=== PATIENT | male | born 1975 | race African-American/Black ===

== ENCOUNTER 2017-07-11 13:37 | Inpatient (IN) ==
[2017-07-11] MEDS ORDERED: ONDANSETRON 4 MG/2 ML VIAL ONE ×2 (13:54→21:51)
[2017-07-11] MEDS ORDERED: MORPHINE 2 MG/1 ML SYRINGE ONE (13:54)
--- NOTE | 2017-07-11 14:31 | XRay Report ---
Exam: XR hand 3V LT Date: 07/11/2017 2:00 PM Indication: Trauma laceration Comparison: None Technical: AP lateral oblique Findings: Examination reveals fracture of the distal phalanx of the second digit with soft tissue laceration and transverse fracture. The middle and proximal phalanx are intact. The exam reveals soft tissue laceration of the third digit with soft tissue laceration of the fourth digit. The proximal middle and distal phalanx are intact. The first digit and fifth digit are intact the metacarpals and phalanges are unremarkable. The radius and ulna are intact. Impression: 1. Extensive soft tissue injury of the hand involving the digits involving the third and fourth digits with near amputation of the distal phalanx of the second digit with lateral examination reveals avulsion and transverse fracture fragment present inferiorly posteriorly positioned with resultant open fracture wound present. No obvious foreign body debris present PROCEDURE INTERPRETED AT [facility] DEPARTMENT OF RADIOLOGY Final Report Signed by: Dr. Usman Estrada
[2017-07-11] MEDS ORDERED: MORPHINE 2 MG/1 ML SYRINGE IV STA (14:48)
[2017-07-11] MEDS ORDERED: ONDANSETRON 4 MG/2 ML VIAL IV STA (14:49)
--- NOTE | 2017-07-11 14:56 | Emergency Department Note ---
Arrival - Arrival Chief Complaint: Wound/Laceration Stated Complaint: cut hand/finger ED Nursing Triage Note: Laceration to 2nd, 3rd, and 4th digits. Cut with a skil saw. Mode of Arrival: Ambulatory Limitations: No Limitations Source: Patient Time Seen by Provider: 07/11/17 14:22 - History of Present Illness HPI Narrative: Patient complains of lacerations to the left hand. He cut his index, middle and fourth finger with a circular saw just prior to arrival. He denies any other injury. He last ate around 11:00 today. Last tetanus immunization was 4 years ago. Allergies/Adverse Reactions: Allergies Allergy/AdvReac Type Severity Reaction Status Date / Time No Known Allergies Allergy Verified 07/11/17 13:55 Review of System - Review of System 12 point system: reviewed and no additional remarkable complaints except as stated Medical,Surgical,& Family Hx - Medical History Medical History: noncontributory - Surgical History Surgical History: noncontributory - Family History Family History: noncontributory - Social History Smoking Status: Current every day smoker Frequency of Alcohol Use: None Type of Drug Use: None Exam Physical Examination: Gen: Alert. No acute distress HEENT: Normocephalic and atraumatic. EOMI. No nasal drainage. Neck: Full ROM without evidence of pain. Resp: No acute distress. Ext: There are large lacerations of the distal index, third and fourth fingers of the left hand. Bleeding is controlled. All of the lacerations are over or near the DIP joints. He cannot flex the DIP joint of the index finger so the tendon appears to be lacerated. The middle finger has the most severe laceration and it is nearly amputated. He cannot flex the DIP joint of that finger either. The fourth finger has a full range of motion and good flexion throughout. All fingers have sensation to the tips and good capillary refill. Skin: Normal color. Warm and dry. Neuro: Alert and oriented x 3. No gross cranial, sensory or motor deficits. Vital Signs: Vital Signs Temperature 98.3 F 07/11/17 13:46 Pulse Rate 82 07/11/17 13:46 Respiratory Rate 22 07/11/17 13:46 Blood Pressure 160/117 07/11/17 13:46 O2 Sat by Pulse Oximetry 100 07/11/17 13:46 Course - Reevaluation(s) Reevaluation #1: The patient has lacerated the flexor tendons of the index and middle finger and also has an open fracture of the distal phalanx of the index finger. He is going to need surgery for repair. I discussed patient with Dr. Rick. He asked that we call anesthesia and clear the patient because he ate at 11:00 tonight. Time: 14:54 Reevaluation #2: Anesthesia was contacted and they say they can do surgery around 5:00. Dr. Rick was notified and will come to see the patient in the emergency room. Time: 15:01 Results - Impressions X-ray of the left hand shows large soft tissue lacerations of the index, third and fourth fingers. There is a an open fracture of the distal phalanx of the index finger. Disposition Clinical Impression: Laceration, Open fracture of distal phalanx of digit of left hand, Flexor tendon laceration of finger with open wound Case discussed with: patient Disposition: Still a Patient Condition: Stable Time of Disposition: 15:03
[2017-07-11] MEDS ORDERED: HYDROmorphone 2 MG/1 ML VIAL ONE (15:01)
[2017-07-11] MEDS ORDERED: HYDROmorphone 2 MG/1 ML VIAL IV STA (15:03)
--- NOTE | 2017-07-11 15:29 | XRay Report ---
Single view the chest. Indication: Respiratory preoperative. The heart is normal in size. The pulmonary vasculature is normal. There is mild atelectasis or scarring at the lateral aspect of the left lung base. No consolidation, pneumothorax, or pleural effusion. Impression: Mild atelectasis or scarring at the left lung base. PROCEDURE INTERPRETED AT [facility] DEPARTMENT OF RADIOLOGY Final Report Signed by: Dr. Kim Ryan
[2017-07-11 15:31] LABS: Basophils # 0.1 10*3/uL (0.0-0.2); Basophils % 0.9 % (0.0-0.8); Eosinophils # 0.1 10*3/uL (0.0-0.87); Eosinophils % 1.6 % (0.00-10.9); Hemoglobin 16.3 GM/DL (14.0-18.0); Immature Granulocytes % 0.5 %; Immature Granulocytes Absolute 0.04 #; Lymphocytes % 37.1 % (21.2-54.2); Mean Corpuscular HGB Conc 34.7 GM/DL (32-36); Mean Corpuscular Hemoglobin 32 PG (27-34); Mean Corpuscular Volume 90.9 FL (87-102); Mean Platelet Volume 9.6 FL (9.6-12.0); Monocytes # 0.7 10*3/uL (0.11-0.8); Monocytes % 9.1 % (1.7-12.7); Neutrophils # 4.1 10*3/uL (1.4-7.4); Neutrophils % 50.8 % (38.7-73.9); Platelet Count 363 T/CUMM (130-400); Red Blood Count 5.17 MC/CUMM (3.8-5.5); Red Cell Distribution Width 13.2 % (9.3-17.3)
[2017-07-11 15:33] LABS: Calcium 9.8 MG/DL (8.5-10.1); Osmolality,Calculated 280.3 MOS/KG (273-304)
--- NOTE | 2017-07-11 15:44 | Orthopedic Consult Note ---
History of Present Illness Chief complaint: left hand pain History of present illness: Mr. Vela is a 41 year old male Sustained an injury to his left hand second third and fourth digit from a circular saw earlier today. He is seen and evaluated the ER. X-rays were taken which showed a left index finger distal phalanx fracture. ER evaluation revealed flexor tendon lacerations to the second third and fourth digit. Patient denied any other injuries. Denies any other pain or complaints. He would like to go home today after the procedure to repair his left hand Home Medications Medication Instructions Recorded Confirmed Type Oxycodone HCl/Acetaminophen 1 each PO Q6HR #30 tablet 07/11/17 Rx [Percocet 7.5-325 mg Tablet] Allergies Allergy/AdvReac Type Severity Reaction Status Date / Time No Known Allergies Allergy Verified 07/11/17 13:55 12 point system: reviewed and no additional remarkable complaints except as stated Medical,Surgical,& Family Hx - Medical History Medical History: noncontributory - Surgical History Surgical History: noncontributory - Family History Family History: noncontributory (1/2 ppd) - Social History Smoking Status: Current every day smoker Frequency of Alcohol Use: None Type of Drug Use: None Exam - Constitutional Vitals: Period Temp Pulse Resp BP Sys/Phan Pulse Ox Last 24 Hr 98.3 F 82 22 160/117 100 General appearance: normal weight, no acute distress - Head Head exam: Present: normal inspection, normocephalic, atraumatic - Eye Eye exam: Present: EOMI Pupils: Present: KASANDRA - ENT ENT exam: Present: normal exam - Neck Neck exam: Present: normal inspection. Absent: tenderness - Respiratory Respiratory exam: Absent: accessory muscle use, wheezes - Cardiovascular Cardiovascular exam: Present: regular rate and rhythm - GI/Abdominal GI/Abdominal exam: Absent: distended, firm - Expanded Left Upper Extremity General: Absent: normal inspection (Unable to flex second third or fourth digit. Capillary refill is still brisk. Sensation is blunted the volar aspect of his second third and fourth finger.) Hand wrist exam: Present: laceration (Deep laceration of second third and fourth fingers of the volar aspect) - Neurological Exam Neurological exam: Present: alert, oriented X3, CN II-XII intact - Psychiatric Psychiatric exam: Present: normal affect, normal mood - Skin Skin exam: Present: other (Deep laceration to left second third and fourth digit as above) Results - Labs CBC & BMP: 07/11/17 14:02 07/11/17 14:02 Lab Results: I have reviewed the past 24 hour labs - Diagnostic Findings Procedure: Ultrasound: image reviewed by me, report reviewed by me Assessment and Plan (1) Flexor tendon laceration of finger with open wound Status: Acute Assessment and plan: Discussed with Mr. Vela his injury and that he has a high risk for complications including but not limited to infection, stiffness, decreased range of motion, persistent pain, and other potential complications I explained that I recommend surgical debridement in the operative room to debride and clean the wounds, to repair the flexor tendons if possible, and any other indicated procedures. Discussed that I will be able to better address the injuries in surgery and that I will do everything I can to repair the wounds. I explained that he is at increased risk due to his smoking for infection, complications, pain, stiffness, nonhealing of the wounds. He gave full understanding to this. All questions were answered to his satisfaction. He agreed to undergo the surgical procedure. He would like to go home today because he has 2 children at home that he needs to take care of I explained to him that depend on how complicated and dirty or contaminated the wound is, he may need to stay overnight for IV antibiotics, but that if a is fairly clean he may be able to go home on oral antibiotics. Pain medication prescribed by the ER physician. Plan for surgical debridement today Current Visit: Yes (2) Laceration Status: Acute Current Visit: Yes (3) Open fracture of distal phalanx of digit of left hand Status: Acute Current Visit: Yes
--- NOTE | 2017-07-11 15:46 | EKG Report ---
Stationary ECG Study [facility] ER Test Date: 07/11/2017 3:44:51 PM Pat Name: DOMI BACA Department: Room: Gender: M Assistant Store Manager Trainee: : 1975 Requested by: Usman Mancia Order Number: [id number] Reading MD: AR CARREON Intervals [place] Rate: 64 P: 72 KS: 164 QRS: 78 QRSD: 102 T: 71 QT: 386 QTc: 396 Interpretive Statements SINUS RHYTHM Electronically Signed On 07-12-17 18:45:47 CDT by AR CARREON [email or web address]
--- NOTE | 2017-07-11 20:39 | XRay Report ---
Intraoperative fluoroscopy. 45 seconds. Intraoperative fluoroscopy was provided for the primary service during pin placement in a left second distal phalanx fracture. 3 images were obtained which are presumed to serve the clinical purpose. PROCEDURE INTERPRETED AT [facility] DEPARTMENT OF RADIOLOGY Final Report Signed by: Dr. Kim Ryan
--- NOTE | 2017-07-11 21:39 | Anesthesia Post-Op ---
Anesthesia Post OP - Post Ansesthetic Evaluation Patient seen in post op: Yes Resp: within normal limits CV: within normal limits Mental: within normal limits Temp: within normal limits [id number]: within normal limits Nausea and Vomiting: within normal limits Pain: within normal limits
[2017-07-11] MEDS ORDERED: PROPOFOL 200 MG/20 ML VIAL IV ONE (21:50)
[2017-07-11] MEDS ORDERED: ROCURONIUM 100 MG/10 ML VIAL IV ONE (21:51)
[2017-07-11] MEDS ORDERED: GLYCOPYRROLATE 0.4 MG/2 ML VIAL ONE (21:51)
[2017-07-11] MEDS ORDERED: fentaNYL 100 MCG/2 ML VIAL ONE (21:51)
[2017-07-11] MEDS ORDERED: SEVOFLURANE 1 UNIT/15 MINUTE INH ONE (21:51)
[2017-07-11] MEDS ORDERED: MIDAZOLAM 2 MG/2 ML VIAL ONE (21:51)
[2017-07-11] MEDS ORDERED: NEOSTIGMINE 10 MG/10 ML VIAL ONE (21:51)
[2017-07-11] MEDS ORDERED: LACTATED RINGERS 2,000 ML IV ONE (21:52)
[2017-07-11] MEDS ORDERED: LABETALOL 20 MG/4 ML SYRINGE IV ONE (22:00)
[2017-07-11] MEDS ORDERED: hydrALAZINE 20 MG/1 ML VIAL IV ONE (22:00)
[2017-07-11] MEDS ORDERED: oxyCODONE/ACETAMINOPHEN 5-325 MG TABLET PO PRN (22:17)
[2017-07-11] MEDS ORDERED: ONDANSETRON 4 MG/2 ML VIAL IV PRN (22:17)
[2017-07-11] MEDS ORDERED: MORPHINE 2 MG/1 ML SYRINGE IV PRN (22:17)
--- NOTE | 2017-07-11 22:27 | Operative Note ---
Date of procedure: 07/11/17 Pre-op diagnosis: Traumatic saw injury to left hand second third and fourth digits Post-op diagnosis: other (Significant injury to the left hand second third and fourth digits. Open fracture of the index finger distal phalanx, middle finger distal phalanx and proximal phalanx, and ring finger middle phalanx. Complete laceration of the deep flexor tendons of the index middle and ring fingers, with retraction of the deep flexor tendon of the middle finger to the metacarpal. Complete laceration of the left middle finger ulnar digital artery and nerve which were not repairable) Procedure: Procedures performed #1 irrigation and debridement down to bone of open fracture left index finger distal phalanx #2 irrigation and debridement down to bone of open fracture left middle finger distal phalanx and middle phalanx #3 irrigation and debridement down to bone of open fracture of left ring finger middle phalanx #4 Primary repair of left index finger deep flexor tendon #5 complex primary repair left middle finger deep flexor tendon -this portion of the surgery was significantly complicated due to the need for surgical exploration to locate the tendon and passed the tendon back through the finger pulleys and took a substantially more time than a standard flexor tendon repair #6 primary repair of left ring finger deep flexor tendon #7 A1 zachary release of left middle finger #8 open reduction and internal fixation of left index finger distal phalanx comminuted fracture with a K wire #9 layered closure of complex irregular wound left index finger 3 cm in length #10 layered closure of complex irregular wound left middle finger 8 cm in length #11 layered closure complex irregular wound left ring finger 6 cm in length #12 interpretation of fluoroscopy by surgeon Operative findings: Mr. Vela sustained a circular saw injury to his left hand of the index middle and ring finger. There is extensive damage to all 3 fingers. DexPak finger had a transverse approximate 3 cm wound that went into the distal phalanx creating a comminuted distal phalanx fracture in September the deep flexor tendon at the proximal aspect of the distal phalanx. The middle finger had a approximately 3 cm transverse wound at the DIP joint with a 2 cm wound extending along the middle portion of the distal phalanx and then a 3-4 cm irregular wound longitudinally along the ulnar aspect of the middle phalanx. Middle finger wound extended into the distal aspect of the middle phalanx. There is complete rupture/laceration to the deep flexor tendon. Surgical exploration the stump of the tendon was found within the A1 zachary. The proper ulnar digital nerve was completely severed and mangled nature, the ulnar digital artery was not explored because there is no pulsatile bleeding in this area and the finger tip had good capillary refill. The ring finger had a irregular wound that was approximately 2 cm transverse and 4 cm longitudinal. The skin all 3 sites in particular the middle and ring finger were mangled and some portions of the skin had to be excised Description of procedure: Patient was seen and identified in the preoperative holding area. Consent was verified and signed. Patient then brought to the operative suite by the anesthesia team. After adequate anesthesia was obtained a tourniquet was placed on the left upper brachium the left arm was prepped and draped in the usual sterile fashion after scrubbing the wound hand and arm with Betadine scrub brushes. Timeout was taken indicating correct patient, site, surgery and that antibiotics have been given. Tourniquet was inflated to 250 mmHg. At the start of the procedure a total of 6 L of normal saline were utilized to irrigate the wound sites and with exploration of the wounds all 3 wounds had a fracture component. The index finger had a open, comminuted distal phalanx fracture, the middle finger had saw cuts and small chip fractures to the middle phalanx, the ring finger had saw markings and small chip fractures as well. A small chip fractures there are void of tissue were excised of the index middle and ring finger. There is no debris noted within the wound after thorough irrigation and debridement. I then performed a primary repair of the index finger deep flexor tendon with a combination of 0 and 2-0 Ethibond. I then explored the middle finger and there is no deep flexor tendon at the site of the wound. The A4 zachary was opened and no tendon was visible. Fahad type incision was made over the volar finger and the flexor tendon was still not palpable. A angled incision over the A1 zachary was then performed. Careful dissection carried down to the A1 zachary, the A1 zachary sheath was incised. The deep flexor tendon stump was visible within this area and the tendon was extracted. Krakw stitch was then performed with 2-0 Ethibond. A suture passer was then used to pass the tendon deep to superficial flexor tendon through the A2 and C1 pulleys, and then through the A3 zachary. A direct flexor tendon repair was then performed with a Krakw, mattress, [id number] , and over suture with 2-0 Ethibond. A4 zachary was then reapproximated with 2-0 Ethibond to prevent bow stringing. The deep flexor tendon of the index finger was then primarily repaired with 2-0 Ethibond. Due to the comminution of the fracture as well as the position of the distal phalanx of the index finger, I then opened reduced the fracture through the wound, held the fracture in position and then placed a retrograde K wire under direct fluoroscopic visualization. Pin was advanced into the middle phalanx. Position was verified under multiplanar fluoroscopy. This time the tourniquet was deflated. There is no pulsatile bleeding. Slight venous bleeding was controlled with cautery. Closure of the greater incision and trigger finger incision were closed with 2-0 Monocryl for the deep subcutaneous layer, and 3-0 Prolene for the skin. I then performed complex layered closures of the index middle and ring fingers. This portion of the seizure was very tedious and complex the irregular nature of the wounds and the extent of the injury. Layer closure was performed with 2- 0 Monocryl and then 3-0 Prolene in multiple different suture fashion including simple, [id number], & horizontal mattress suturing. A well-padded splint that extended to the tips of the fingers with the fingers held in a flexed position. Patient was then awoken by anesthesia and taken the PACU in stable condition Postoperative instructions: Patient will be admitted overnight for pain control, and iv antibiotics. Medicine consulted for medical management and hypertension I spoke with his aunt on the phone who is listed as his contact in regards to the devastating nature of the injury and explained to her that he may need to undergo extensive rehabilitation, he may not regain full function of these 3 fingers due to the devastating nature of the injury Implants: k-wire Anesthesia: JO Surgeon / Physician: Bryan Rick Estimated blood loss: minimal Specimens: none sent Condition: stable Disposition: PACU Results - Labs CBC & BMP: 07/11/17 14:02 07/11/17 14:02 Discharge Plan - Discharge Medications New Oxycodone HCl/Acetaminophen [Percocet 7.5-325 mg Tablet] 1 each PO Q6HR #30 tablet - Follow Up or Referral - Forms/Instructions
[2017-07-11] MEDS: LACTATED RINGERS 1,000 ML IV SCH (23:07)
[2017-07-11] MEDS: ceFAZolin 2,000 MG in PREMIX 1 EACH IV SCH (23:07)
[2017-07-11] MEDS: oxyCODONE/ACETAMINOPHEN 5-325 MG TABLET PO PRN (23:18)
[2017-07-12] MEDS: ceFAZolin 2,000 MG in PREMIX 1 EACH IV SCH (06:08)
[2017-07-12 07:50] VITALS: BP 126/76
[2017-07-12] MEDS: oxyCODONE/ACETAMINOPHEN 5-325 MG TABLET PO PRN (08:10)
[2017-07-12] MEDS: LACTATED RINGERS 1,000 ML IV SCH (08:11)
--- NOTE | 2017-07-12 08:22 | Discharge Summary ---
Hospital Course - Hospital Course Hospital Course: pt sustained a circular saw injury to his left hand 2,3,4 digits with significant injuries. Surgery was performed the day he presented to the hospital. He was discharge to home in stable condition on POD#1. Diagnosis - Discharge Diagnosis (1) Flexor tendon laceration of finger with open wound Status: Acute (2) Laceration Status: Acute (3) Open fracture of distal phalanx of digit of left hand Status: Acute Specialty Discharge - Follow Up or Referrals Follow up with: Maik Orr Jr., MD [Physician] - - Speciality Discharge Instructions Orthopedic Instructions: Maintain splint clean, dry, intact at all times. Take the pain medication as prescribed. Complete the antibiotics as prescribed Discharge Plan - Discharge Data Disposition: Disch To Home/Self Care Condition at Discharge: Stable Discharge Diet: advance to your usual diet Activity: other (no use left hand/arm) Hygiene: keep area(s) dry Weight Bearing at Discharge: non-weight bearing (left arm) Driving: other (no driving while on pain medication) Contact your physician if you experience:: fever over 101, Redness or swelling, Bleeding, pain uncontrolled by pain medications Wound / Dressing Care Instructions: maintain splint clean, dry, and intact - Discharge Medications No Action No Known Home Medications [No Known Home Medications] - Follow Up or Referral Follow Up: Maik Orr Jr., MD [Physician] - - Forms/Instructions Exam - Constitutional Vitals: Period Temp Pulse Resp BP Sys/Phan Pulse Ox Last 24 Hr 97.0 F-99.1 F 75-106 16-22 115-171/62-117 92-100 General appearance: normal weight - Head Head exam: Present: normal inspection - Eye Pupils: Present: KASANDRA - ENT ENT exam: Present: normal exam - Neck Neck exam: Present: normal inspection - Respiratory Respiratory exam: Absent: accessory muscle use, wheezes - GI/Abdominal GI/Abdominal exam: Absent: distended, firm - Expanded Left Upper Extremity Hand wrist exam: Absent: normal inspection (splint in place, cap refill brisk. ) Discharge Results Labs on day of discharge: Labs from last 24 hours 07/12/17 07/11/17 07/11/17 07:01 14:02 14:02 WBC 8.0 RBC 5.17 Hgb 16.3 Hct 47.0 MCV 90.9 MCH 32 MCHC 34.7 RDW 13.2 Plt Count 363 MPV 9.6 Neut % (Auto) 50.8 Lymph % (Auto) 37.1 [place] % (Auto) 9.1 Eos % (Auto) 1.6 Baso % (Auto) 0.9 H Neut # (Auto) 4.1 Lymph # (Auto) 3.0 [place] # (Auto) 0.7 Eos # (Auto) 0.1 Baso # (Auto) 0.1 Immature Gran % 0.5 Nucleated RBC % 0.0 Immature Gran # 0.04 Nucleated RBCs # 0.00 Immature Plt Fraction 0.0 Sodium 141 Potassium 4.0 Chloride 108 H Carbon Dioxide 26 Anion Gap 11.0 BUN 13 Creatinine 0.90 GFR Calculation 140 BUN/Creatinine Ratio 14.00 Glucose 101 POC Glucose 105 Calculated Osmolality 280.3 Calcium 9.8 - Imaging and Cardiology Procedure: X-ray: image reviewed by me, report reviewed by me DS: Provider Date of admission: 07/11/17 17:26 Primary care physician: . No PCP Attending physician on admission: Usman Barrett, Consults: 07/11/17 22:22 Consult to Physician [CONS] Routine Comment: Hospitalist - HTN, Medical managment Consulting Provider: Person Notified: sindhu rashid np Date Notified: 07/12/17 Time Notified: 07:21 Discharging clinician: Bryan Rick DO Expected date of discharge: 07/12/17
[2017-07-12] MEDS ORDERED: SULFAMETHOX/TRIMETHOPRIM 800-160 MG TABLET PO SCH (09:00)
== END 2017-07-12 11:04 | disposition home or self-care (01) | DRG 513 ==
LOC: N.ED 13:37 → N.3E 13:37 → OBSVTOIN 17:26 → N.3E 17:43
PROVIDERS: ADMIT Emergency Medicine; ATTEND Emergency Medicine